=== PATIENT | male | born 1995 | race Caucasian/White ===

== ENCOUNTER → 2016-12-13 | Outpatient (CLI) | payer OTHER ==
[~2016-12-13] MED LIST: AMOXICILLIN500 M2 PO; ATIVAN1 MG PO; BLOOD PRESSURE MED PO; CELEXA PO; CELEXA10 MG PO; CELEXA20 MG PO; CEPHALEXIN500 M1 PO; CIPRO500 MG PO; DEBROX15 ML OT; FLAGYL250 MG PO; FLONASE ALLERG9.9 ML NAS; HYDROCODONE BIT1 T11 PO; LISINOPRIL10 MG PO; LOMOTIL 0.025 M1 TA1 PO; MOTRIN 600 MG E4 TAB PO; MOTRIN800 MG PO; Motrin,Rufen800 MG PO; PREDNISONE10 MG PO; PREDNISONE20 M1 PO; PREDNISONE20 MG PO; ROBITUSSIN DM 105 ML PO; SUDAFED 12 HOU120 MG PO; SYNTHROID25 MCG PO; VENTOLIN H0.09 MG/AC INH
[2016-12-13 16:21] LABS: BUN 13 mg/dl (7-24); EST GLOM FILT AFRICAN AMERICAN > 60 ml/min
== END | disposition home or self-care (01) ==
LOC: LAB 15:51 → CT 15:51
PROVIDERS: Family Medicine
DX: N50.819 Testicular pain, unspecified (principal); R10.2 Pelvic and perineal pain; R10.9 Unspecified abdominal pain; R59.9 Enlarged lymph nodes, unspecified

== ENCOUNTER 2017-05-21 08:08 | Emergency (ER) | payer OTHER ==
[~2017-05-21] VITALS: Ht 165.1 cm; Wt 65.8 kg
[2017-05-21] MEDS ORDERED: ZITHROMAX250 MG PO (08:41)
[2017-05-21] MEDS ORDERED: PROVENTIL HFA6.7 GM INH (08:44)
== END 2017-05-21 09:30 | disposition home or self-care (01) ==
LOC: ED 08:08
DX: J20.9 Acute bronchitis, unspecified (principal); J32.9 Chronic sinusitis, unspecified; E03.9 Hypothyroidism, unspecified; I10 Essential (primary) hypertension; F17.200 Nicotine dependence, unspecified, uncomplicated; Z98.890 Other specified postprocedural states; Z79.899 Other long term (current) drug therapy

== ENCOUNTER 2017-05-29 12:34 | Emergency (ER) | payer OTHER ==
[~2017-05-29] VITALS: Wt 65.8 kg
[~2017-05-29 12:34] MED LIST changes: +PROVENTIL HFA6.7 GM INH; +ZITHROMAX250 MG PO
[2017-05-29] MEDS ORDERED: FLONASE ALLERG9.9 ML NAS (13:10)
[2017-05-29] MEDS ORDERED: PREDNISONE10 MG PO (13:10)
[2017-05-29] MEDS ORDERED: DEBROX15 ML OT (13:10)
[2017-05-29] MEDS ORDERED: CLARITIN10 MG PO (13:10)
== END 2017-05-29 14:03 | disposition home or self-care (01) ==
LOC: ED 12:34
DX: J06.9 Acute upper respiratory infection, unspecified (principal); H61.23 Impacted cerumen, bilateral; I10 Essential (primary) hypertension; E03.9 Hypothyroidism, unspecified; F17.200 Nicotine dependence, unspecified, uncomplicated

== ENCOUNTER → 2017-07-01 | Outpatient (CLI) | payer OTHER ==
[~2017-07-01] MED LIST changes: +CLARITIN10 MG PO
== END | disposition home or self-care (01) ==
LOC: US 16:55
DX: I86.1 Scrotal varices (principal)

== ENCOUNTER 2018-05-08 17:33 | Emergency (ER) | payer OTHER ==
[~2018-05-08] VITALS: Ht 154.9 cm; Wt 66.2 kg
[2018-05-08] MEDS ORDERED: CEFADROXIL500 M1 PO (18:49)
== END 2018-05-08 18:51 | disposition home or self-care (01) ==
LOC: ED 17:33
DX: S61.412A Laceration without foreign body of left hand, initial encounter (principal); W25.XXXA Contact with sharp glass, initial encounter; Y93.89 Activity, other specified; Y92.89 Other specified places as the place of occurrence of the external cause; Y99.8 Other external cause status

== ENCOUNTER → 2020-09-16 | Outpatient (CLI) | payer OTHER ==
[~2020-09-16] MED LIST changes: +CEFADROXIL500 M1 PO
[2020-09-16 13:56] LABS: HEMATOCRIT 50.8 % (42.0-52.0); MEAN CELL VOLUME 91.5 fl (80.0-94.0); MEAN CORPUSCULAR HGB 30.6 pg (27.0-31.0); MEAN CORPUSCULAR HGB CONC 33.5 g/dl (33.0-37.0); MEAN PLATELET VOLUME 9.8 fl (9.6-12.3); RED BLOOD COUNT 5.55 10*6/uL (4.50-5.90); RED CELL DISTRI WIDTH 13.2 % (0-14.5); WHITE BLOOD COUNT 10.5 10*3/uL (4.8-10.8)
[2020-09-16 14:36] LABS: ALBUMIN 4.3 gm/dl (3.1-4.5); ALKALINE PHOSPHATASE 95 U/L (45-117); BUN 15 mg/dl (7-24); CHLORIDE 108 mmol/L (98-107); CHOLESTEROL 222 mg/dL (<200); CREATININE 1.17 mg/dL (0.70-1.30); POTASSIUM 4.1 mmol/L (3.5-5.1); SGOT/AST 24 IU/L (3-35); SGPT/ALT 36 U/L (12-78); SODIUM 141 mmol/L (136-145); TRIGLYCERIDES 78 mg/dl (<150); VLDL CHOLESTEROL 16 mg/dL (6-40)
[2020-09-16 14:41] LABS: HDL CHOLESTEROL 52 mg/dl (40-60); LDL CHOLESTEROL 154 mg/dL (9-159)
[2020-09-17 09:10] LABS: HEP B CORE AB, IGM Negative (Negative); HEPATITIS B SURFACE AG Negative (Negative); HEPATITIS C VIRUS ANTIBODY <0.1 s/co (0.0-0.9); RHEUMATOID ARTHRITIS FACTOR <10.0 IU/mL (0.0-13.9)
[2020-09-19 08:06] LABS: H PYLORI IGG AB 0.09 (0.00-0.79)
== END | disposition home or self-care (01) ==
LOC: LAB 13:31
PROVIDERS: ATTEND Family Medicine
DX: K21.9 Gastro-esophageal reflux disease without esophagitis (principal); E03.9 Hypothyroidism, unspecified; I10 Essential (primary) hypertension; E78.00 Pure hypercholesterolemia, unspecified; E55.9 Vitamin D deficiency, unspecified

== ENCOUNTER 2023-03-04 18:25 | Emergency (ER) | payer OTHER ==
[~2023-03-04] VITALS: Wt 63.5 kg
[2023-03-04] MEDS ORDERED: NAPROSYN500 MG PO ×2 (22:52→23:00)
[2023-03-04] MEDS ORDERED: CYCLOBENZAPRINE10 MG PO ×2 (22:52→23:00)
== END 2023-03-04 23:01 | disposition home or self-care (01) ==
LOC: ED 18:25
DX: S43.402A Unspecified sprain of left shoulder joint, initial encounter (principal); I10 Essential (primary) hypertension; F32.A Depression, unspecified; Z98.890 Other specified postprocedural states; V89.2XXA Person injured in unspecified motor-vehicle accident, traffic, initial encounter; Y93.89 Activity, other specified; Y92.410 Unspecified street and highway as the place of occurrence of the external cause; Y99.8 Other external cause status

== ENCOUNTER 2023-03-16 12:55 | Emergency (ER) | payer OTHER ==
[~2023-03-16] VITALS: Ht 154.9 cm; Wt 63.5 kg
[~2023-03-16 12:55] MED LIST changes: +CYCLOBENZAPRINE10 MG PO; +NAPROSYN500 MG PO
[2023-03-16 13:37] LABS: BASO # 0.1 10*3/uL (0.0-0.1); EOS # 0.5 10*3/uL (0.0-0.4); EOS % 4.3 % (1.0-4.0); HEMATOCRIT 47.7 % (42.0-52.0); LYMPH # 3.6 10*3/uL (1.3-4.4); MEAN CELL VOLUME 88.3 fl (80.0-94.0); MEAN CORPUSCULAR HGB 30.6 pg (27.0-31.0); MEAN CORPUSCULAR HGB CONC 34.6 g/dl (33.0-37.0); MEAN PLATELET VOLUME 9.2 fl (9.6-12.3); MONO # 0.6 10*3/uL (0.1-1.0); MONO % 5.7 % (3.0-9.0); NEUT # 5.7 10*3/uL (2.3-7.9); NEUT % 54.5 % (47.0-73.0); PLATELET COUNT AUTOMATED 196 10*3/uL (130-400); RED CELL DISTRI WIDTH 13.1 % (0-14.5); WHITE BLOOD COUNT 10.5 10*3/uL (4.8-10.8)
[2023-03-16 13:59] LABS: ALKALINE PHOSPHATASE 91 U/L (46-116); BUN 16 mg/dl (9-23); CHLORIDE 108 mmol/L (98-107); POTASSIUM 3.8 mmol/L (3.4-5.1); SGPT/ALT 19 U/L (10-49); TOTAL PROTEIN 7.3 gm/dL (6.0-8.0)
[2023-03-16] MEDS ORDERED: PREDNISONE50 MG PO (15:38)
== END 2023-03-16 15:30 | disposition home or self-care (01) ==
LOC: ED 12:55
PROVIDERS: Nurse Practitioner Family
DX: S16.1XXA Strain of muscle, fascia and tendon at neck level, initial encounter (principal); M25.511 Pain in right shoulder; I10 Essential (primary) hypertension; F32.A Depression, unspecified; Z98.890 Other specified postprocedural states; V49.9XXA Car occupant (driver) (passenger) injured in unspecified traffic accident, initial encounter; Y93.89 Activity, other specified; Y92.410 Unspecified street and highway as the place of occurrence of the external cause; Y99.8 Other external cause status

== ENCOUNTER 2024-01-15 10:14 | Emergency (ER) | payer OTHER ==
[~2024-01-15] VITALS: Wt 63.5 kg
[~2024-01-15 10:14] MED LIST changes: +PREDNISONE50 MG PO
[2024-01-15] MEDS ORDERED: Ketorolac Tromethamine 60 MG/2 ML VIAL IM ONE (12:15)
[2024-01-15] MEDS ORDERED: IBUPROFEN600 MG PO (14:13)
== END 2024-01-15 14:29 | disposition home or self-care (01) ==
LOC: ED 10:14
DX: B34.9 Viral infection, unspecified (principal); Z20.822 Contact with and (suspected) exposure to COVID-19; R42 Dizziness and giddiness; Z79.899 Other long term (current) drug therapy; Z98.890 Other specified postprocedural states